=== PATIENT | female | born 1975 | race African-American/Black ===

== ENCOUNTER 2017-06-26 07:56 | Emergency (ER) | payer MEDICAID ==
[2017-06-26 09:09] LABS: ABSOLUTE EOSINOPHILS # (AUTO) 0.1 10^3/uL (0.0-0.6); ABSOLUTE LYMPHOCYTES (AUTO) 2.5 10^3/uL (0.5-4.7); ABSOLUTE MONOCYTES (AUTO) 0.4 10^3/uL (0.1-1.4); ABSOLUTE NEUT (AUTO) 1.7 10^3/uL (1.7-8.2); BASOPHILS % (AUTO) 0.6 % (0-2); HEMOGLOBIN 12.5 g/dL (12.0-15.5); LYMPHOCYTES % (AUTO) 53.3 % (13-45); MEAN CORPUSCULAR HEMOGLOBIN 27.1 pg (27.0-33.4); MEAN CORPUSCULAR VOLUME 85 fl (80-97); MONOCYTES % (AUTO) 7.7 % (3-13); RED BLOOD COUNT 4.62 10^6/uL (3.72-5.28); RED CELL DISTRIBUTION WIDTH 14.5 % (11.5-14.0); SEGMENTED NEUTROPHILS % (AUTO) 36.4 % (42-78); TOTAL CELLS COUNTED % (AUTO) 100 %; WHITE BLOOD COUNT 4.7 10^3/uL (4.0-10.5)
--- NOTE | 2017-06-26 09:19 | RADIOLOGY REPORT (SQ) ---
Exam Description CHEST PA/LAT Completed Date/time 06/26/2017 9:14 AM Reason For Study pain between shoulders, sob Comparison Impression. Exam Parameters NUMBER OF VIEWS: Two views. TECHNIQUE: Digital Frontal and Lateral radiographic views of the chest acquired. Limitations: (None). Findings LUNGS AND PLEURA: No opacities, masses or pneumothorax No pleural effusion. MEDIASTINUM AND HILAR STRUCTURES: No masses or contour abnormalities. HEART AND VASCULAR STRUCTURES: Heart size is normal. No evidence for failure. (Normal appearing aorta for age.) . BONES: No acute findings. HARDWARE: None. Impression NO SIGNIFICANT RADIOGRAPHIC FINDING IN THE CHEST. Technical Documentation 2010 [employer]- All Rights Reserved
[2017-06-26] MEDS ORDERED: FENTANYL CITRATE INJ/PF 100 MCG/2 ML AMPUL IV ONE ×2 (09:29→10:23)
[2017-06-26 09:30] LABS: CREATINE KINASE MB 0.37 ng/mL (<4.55)
--- NOTE | 2017-06-26 09:30 | ER Document Report ---
ED General - General Chief Complaint: Shoulder Pain Stated Complaint: PAIN BETWEEN SHOULDERS Time Seen by Provider: 06/26/17 08:34 Mode of Arrival: Ambulatory Information source: Patient Notes: Patient is a 42-year-old female who presents to the ER today for abdominal pain that began in the lower midabdomen 4 days ago and is now in the right side, right mid back. Patient denies any fever that she knows of, nausea, but admits to some shortness of breath with the pain and chills. Patient denies any chest pain, dysuria, hematuria, abnormal vaginal discharge. Patient does not have her appendix. Patient has had gallbladder problems in the past, But still has her gallbladder. TRAVEL OUTSIDE OF THE [place] IN LAST 30 DAYS: No - Related Data Allergies/Adverse Reactions: Penicillins Allergy (Verified 06/26/17 07:57) Hives Past Medical History - General Information source: Patient - Social History Smoking Status: Current Some Day Smoker Frequency of alcohol use: Occasional Drug Abuse: None Family History: Reviewed & Not Pertinent Patient has suicidal ideation: No Patient has homicidal ideation: No Pulmonary Medical History: Reports: Hx Asthma Renal/ Medical History: Denies: Hx Peritoneal Dialysis Past Surgical History: Reports: Hx Appendectomy - Immunizations Hx Diphtheria, Pertussis, Tetanus Vaccination: Yes Review of Systems - Review of Systems Constitutional: See HPI EENT: No symptoms reported Cardiovascular: No symptoms reported Respiratory: No symptoms reported Gastrointestinal: See HPI Genitourinary: See HPI Female Genitourinary: No symptoms reported Musculoskeletal: No symptoms reported Skin: No symptoms reported Hematologic/Lymphatic: No symptoms reported Neurological/Psychological: No symptoms reported Physical Exam - Vital signs Vitals: Temp Pulse Resp BP Pulse Ox 98.8 F 71 16 110/66 100 06/26/17 08:10 06/26/17 08:10 06/26/17 08:10 06/26/17 08:10 06/26/17 08:10 - Notes Notes: PHYSICAL EXAMINATION: GENERAL: Uncomfortable appearing, but in no acute distress. HEAD: Atraumatic, normocephalic. EYES: Pupils equal round and reactive to light, extraocular movements intact, sclera anicteric, conjunctiva are normal. NECK: Normal range of motion, supple without lymphadenopathy LUNGS: CTAB and equal. No wheezes rales or rhonchi. HEART: Regular rate and rhythm without murmurs ABDOMEN: Soft, right-sided, suprapubic tenderness. No guarding, no rebound BACK: no vertebral tenderness, normal ROM GI/: Right CVA tenderness EXTREMITIES: Normal range of motion, no pitting edema. No cyanosis. NEUROLOGICAL: Cranial nerves grossly intact. Normal sensory/motor exams. PSYCH: Normal mood, normal affect. SKIN: Warm, Dry, normal turgor, no rashes or lesions noted Course - Re-evaluation Re-evalutation: 06/26/17 10:26 +Urinalysis positive for infection with nitrites, leukocytes and 25 white blood cells. Right upper quadrant ultrasound negative for any acute pathology, chest x-ray negative for any acute pathology, lab work is otherwise unremarkable today. - Vital Signs Vital signs: Temp Pulse Resp BP Pulse Ox 98.8 F 71 12 106/85 100 06/26/17 08:10 06/26/17 08:10 06/26/17 09:29 06/26/17 09:29 06/26/17 09:29 - Laboratory Result Diagrams: 06/26/17 08:50 06/26/17 08:50 Laboratory results interpreted by me: 06/26/17 06/26/17 06/26/17 08:50 08:50 09:40 RDW 14.5 H Plt Count 98 L Seg Neutrophils % 36.4 L Lymphocytes % 53.3 H Chloride 108 H Glucose 63 L Urine Nitrite POSITIVE H Urine Urobilinogen 2.0 H Ur Leukocyte Esterase LARGE H Discharge - Discharge Clinical Impression: UTI (urinary tract infection) Qualifiers: Urinary tract infection type: site unspecified Hematuria presence: without hematuria Qualified Code(s): N39.0 - Urinary tract infection, site not specified Condition: Stable Disposition: HOME, SELF-CARE Instructions: Urinary Tract Infection ([facility]) Additional Instructions: Return immediately for any new or worsening symptoms. Follow up with primary care provider, call tomorrow to make followup appointment. Prescriptions: Ketorolac Tromethamine [Toradol 10 mg Tablet] 10 mg PO Q6HP PRN #20 tablet PRN Reason: Ciprofloxacin HCl [Cipro 500 mg Tablet] 500 mg PO BID #20 tablet Forms: Return to Work
[2017-06-26 09:31] LABS: TROPONIN I < 0.012 ng/mL
[2017-06-26 09:35] LABS: ALANINE AMINOTRANSFERASE 26 U/L (9-52); ALBUMIN 4.2 g/dL (3.5-5.0); ALKALINE PHOSPHATASE 45 U/L (38-126); ANION GAP 10 (5-19); ASPARTATE AMINO TRANSFERASE 22 U/L (14-36); BILIRUBIN,DIRECT 0.4 mg/dL (0.0-0.4); BILIRUBIN,TOTAL 0.6 mg/dL (0.2-1.3); BLOOD UREA NITROGEN 16 mg/dL (7-20); CALCIUM 9.5 mg/dL (8.4-10.2); CARBON DIOXIDE 25 mmol/L (22-30); CHLORIDE 108 mmol/L (98-107); CREATINE KINASE 109 U/L (30-135); GLUCOSE 63 mg/dL (75-110); POTASSIUM 4.1 mmol/L (3.6-5.0); SODIUM 142.5 mmol/L (137-145); TOTAL PROTEIN 6.9 g/dL (6.3-8.2)
[2017-06-26 09:46] LABS: PLATELET COUNT 98 10^3/uL (150-450)
[2017-06-26 10:04] LABS: APPEARANCE,URINE CLOUDY; BILIRUBIN,URINE NEGATIVE (NEGATIVE); COLOR,URINE YELLOW; GLUCOSE, URINE NEGATIVE (NEGATIVE); KETONES,URINE NEGATIVE (NEGATIVE); LEUKOCYTE ESTERASE,URINE LARGE (NEGATIVE); NITRITE,URINE POSITIVE (NEGATIVE); PROTEIN,URINE NEGATIVE (NEGATIVE); URINE SPECIFIC GRAVITY 1.027
--- NOTE | 2017-06-26 10:22 | RADIOLOGY REPORT (SQ) ---
EXAM DESCRIPTION: U/S ABDOMEN LIMITED W/O DOP COMPLETED DATE/TIME: 06/26/2017 10:07 am REASON FOR STUDY: ruq pain COMPARISON: None. TECHNIQUE: Dynamic and static grayscale images acquired of the abdomen and recorded on PACS. Additio nal selected color Doppler and spectral images recorded. LIMITATIONS: None. FINDINGS: PANCREAS: No masses. Visualized pancreatic duct normal caliber. LIVER: No masses. Echotexture normal. LIVER VASCULATURE: Normal directional flow of the main portal vein and hepatic veins. GALLBLADDER: No stones. Normal wall thickness. No pericholecystic fluid. ULTRASOUND-DETECTED WIGGINS'S SIGN: Negative. INTRAHEPATIC DUCTS AND COMMON DUCT: CBD and intrahepatic ducts normal caliber. No filling defects. INFERIOR VENA CAVA: Normal flow. AORTA: No aneurysm. RIGHT KIDNEY: Normal size. Normal echogenicity. No solid or suspicious masses. No hydronephrosis. No calcifications. PERITONEAL AND RIGHT PLEURAL SPACE: No ascites or effusions. OTHER: No other significant findings. IMPRESSION: NORMAL RIGHT UPPER QUADRANT ULTRASOUND. TECHNICAL DOCUMENTATION: JOB ID: [id number] [employer]- All Rights Reserved
[2017-06-26] MEDS ORDERED: CIPROFLOXACIN HCL 500 MG TABLET PO ONE (10:23)
[2017-06-26 12:00] VITALS: BP 116/66
--- NOTE | 2017-06-26 13:27 | EKG REPORT ---
SEVERITY:- NORMAL ECG - SINUS RHYTHM : Confirmed by: Guero Amin MD 26-Jun-2017 13:27:09
== END 2017-06-26 12:00 | disposition home or self-care (01) ==
LOC: ER 07:56
DX: N39.0 Urinary tract infection, site not specified (principal); M25.519 Pain in unspecified shoulder; M54.6 Pain in thoracic spine; R10.9 Unspecified abdominal pain; R10.30 Lower abdominal pain, unspecified; M54.9 Dorsalgia, unspecified; F17.200 Nicotine dependence, unspecified, uncomplicated
CPT/HCPCS: 93005; 96376; 99284; 96374; 36415; 82553; 82550; 85025; 81025; 80053; 81001; 84484; 71046; 76705; 93010; J3490; J3010

== ENCOUNTER 2018-08-05 02:42 | Emergency (ER) | payer SELFPAY ==
[2018-08-05] MEDS ORDERED: ACETAMINOPHEN 325 MG TABLET PO ONE (04:30)
[2018-08-05] MEDS ORDERED: CLINDAMYCIN HCL 150 MG CAPSULE PO ONE (04:30)
--- NOTE | 2018-08-05 04:46 | ER Document Report ---
ED General - General Chief Complaint: Breathing Difficulty Stated Complaint: DIFFICULTY BREATHING Time Seen by Provider: 08/05/18 04:23 Primary Care Provider: BRYANNA DUNBAR APRN [NO LOCAL MD] - Follow up in 3-5 days Notes: Patient is a 43-year-old female who presents with complaint of runny nose cough congestion sore throat. She also has pain over her frontal sinus and the right side says it goes down into her face. She says when she leans back she feels a severe pressure in her frontal sinus. When she leans forward he gets better. No nausea. No vomiting. Subjective fevers. Symptoms have been ongoing for several days. She does smoke. She does have an occasional cough. No wheezing that she is aware of. No chronic medical problems. She is otherwise healthy. TRAVEL OUTSIDE OF THE [place] IN LAST 30 DAYS: No - Related Data Allergies/Adverse Reactions: Penicillins Allergy (Verified 08/05/18 02:54) Hives Past Medical History - Social History Smoking Status: Current Every Day Smoker Frequency of alcohol use: None Drug Abuse: None Family History: Reviewed & Not Pertinent Pulmonary Medical History: Reports: Hx Asthma Renal/ Medical History: Denies: Hx Peritoneal Dialysis Past Surgical History: Reports: Hx Appendectomy - Immunizations Hx Diphtheria, Pertussis, Tetanus Vaccination: Yes Review of Systems - Review of Systems Notes: My Normal Review Basic REVIEW OF SYSTEMS: CONSTITUTIONAL : Subjective fevers EENT: Nasal congestion. Right-sided frontal headache with sinus pressure. Sore throat. RESPIRATORY: Cough. GASTROINTESTINAL: Denies abdominal pain. Denies nausea, vomiting, or diarrhea. MUSCULOSKELETAL: Denies neck or back pain or joint pain or swelling. SKIN: Denies rash or skin lesions. NEUROLOGICAL: Denies altered mental status or loss of consciousness. Has a headache. Denies weakness or paralysis or loss of use of either side. Denies problems with gait or speech. Denies sensory or motor loss. ALL OTHER SYSTEMS REVIEWED AND NEGATIVE. Physical Exam - Vital signs Vitals: Temp Pulse Resp BP Pulse Ox 99.2 F 92 16 137/81 H 100 08/05/18 02:43 08/05/18 02:43 08/05/18 02:43 08/05/18 02:43 08/05/18 02:43 - Notes Notes: General Appearance: Well nourished, alert, cooperative, no acute distress, mild obvious discomfort. Audible nasal congestion on exam Vitals: reviewed, See vital signs table. Head: no swelling or tenderness to the head Eyes: PERRL, EOMI, Conjuctiva clear Mouth: No decreasd moisture Throat: No tonsillar inflammation, No airway obstruction, No lymphadenopathy Ears: Normal-appearing tympanic membranes bilaterally Neck: Supple, no neck tenderness, No thyromegaly. Patient moves her neck freely during exam without signs of stiffness. Lungs: No wheezing, No rales, No rhonci, No accessory muscle use, good air exchange bilaterally. Heart: Normal rate, Regular rythm, No murmur, no rub Extremities: good pulses in all extremities, no swelling or tenderness in the extremities, no edema. Skin: warm, dry, appropriate color, no rash Neuro: speech clear, oriented x 3, normal affect, responds appropriately to questions. Renal nerves II through XII are intact. Distal sensation intact. Patient moves all extremities without difficulty. Course - Re-evaluation Re-evalutation: 08/05/18 05:23 Based on patient's exam and history suspect this most likely has a sinusitis being that she has a pressure over her right frontal maxillary sinus that is wor se with certain positions of her head. She has also audible nasal congestion with other URI symptoms such as sore throat and ear pain. We will place her on antibiotic. She started having some fevers today. I do not suspect meningitis as the patient is well-appearing and not at all confused and altered despite symptoms going on for several days. Also she is moving her head freely when the room with no signs of neck stiffness. Encouraged patient to return to ER if she has severe worsening headache, fevers respond to Tylenol, vomiting, or if she feels that she is worsening in any way. Patient agrees with plan will be discharged home. Dictation of this chart was performed using voice recognition software; therefore, there may be some unintended grammatical errors. - Vital Signs Vital signs: Temp Pulse Resp BP Pulse Ox 99.2 F 92 16 137/81 H 100 08/05/18 02:43 08/05/18 02:43 08/05/18 02:43 08/05/18 02:43 08/05/18 02:43 Discharge - Discharge Clinical Impression: Sinusitis, URI (upper respiratory infection) Condition: Good Disposition: HOME, SELF-CARE Additional Instructions: Please take Ibuprofen 400mg every 6 hours and Tylenol 500mg every 4 hours for fever or pain. Please take the antibiotic (clindamycin) as prescribed. Please follow up with your doctor in 3-5 days for reevaluation. Return to the ER for reevaluation if you do not have a doctor and your symptoms have not started to improve after 3 days please return to the ER immediately if you develop worsening pain, recurrent fevers not responding to Tylenol. neck stiffness, or if you feel that you are worsening in any way. Please stop smoking. Prescriptions: RX: Clindamycin HCl [Cleocin 150 mg Capsule] 300 mg PO Q6 #56 capsule Forms: Return to Work Referrals: BRYANNA DUNBAR, CLAIRE [NO LOCAL MD] - Follow up in 3-5 days
[2018-08-05 05:23] VITALS: BP 124/74
== END 2018-08-05 05:25 | disposition home or self-care (01) ==
LOC: ER 02:42
DX: J32.9 Chronic sinusitis, unspecified (principal); J06.9 Acute upper respiratory infection, unspecified; R05 Cough; R09.81 Nasal congestion; R51 Headache; H92.09 Otalgia, unspecified ear; J02.9 Acute pharyngitis, unspecified; J45.909 Unspecified asthma, uncomplicated; F17.200 Nicotine dependence, unspecified, uncomplicated; Z88.0 Allergy status to penicillin
CPT/HCPCS: 99283

== ENCOUNTER 2018-09-27 07:05 | Emergency (ER) | payer SELFPAY ==
[2018-09-27 08:23] LABS: ABSOLUTE EOSINOPHILS # (AUTO) 0.1 10^3/uL (0.0-0.6); ABSOLUTE LYMPHOCYTES (AUTO) 0.9 10^3/uL (0.5-4.7); ABSOLUTE MONOCYTES (AUTO) 0.5 10^3/uL (0.1-1.4); ABSOLUTE NEUT (AUTO) 6.3 10^3/uL (1.7-8.2); BASOPHILS % (AUTO) 0.2 % (0-2); EOSINOPHILS % (AUTO) 1.2 % (0-6); HEMATOCRIT 40.2 % (36.0-47.0); MEAN CORPUSCULAR HEMOGLOBIN 27.3 pg (27.0-33.4); MEAN CORPUSCULAR HGB CONC 32.4 g/dL (32.0-36.0); MEAN CORPUSCULAR VOLUME 84 fl (80-97); MONOCYTES % (AUTO) 6.3 % (3-13); RED BLOOD COUNT 4.77 10^6/uL (3.72-5.28); RED CELL DISTRIBUTION WIDTH 14.7 % (11.5-14.0); SEGMENTED NEUTROPHILS % (AUTO) 80.3 % (42-78); TOTAL CELLS COUNTED % (AUTO) 100 %; WHITE BLOOD COUNT 7.9 10^3/uL (4.0-10.5)
[2018-09-27 08:34] LABS: ALANINE AMINOTRANSFERASE 20 U/L (9-52); ALBUMIN 4.5 g/dL (3.5-5.0); ALKALINE PHOSPHATASE 51 U/L (38-126); ANION GAP 10 (5-19); ASPARTATE AMINO TRANSFERASE 23 U/L (14-36); BILIRUBIN,DIRECT 0.3 mg/dL (0.0-0.4); BLOOD UREA NITROGEN 10 mg/dL (7-20); CALCIUM 9.7 mg/dL (8.4-10.2); CARBON DIOXIDE 26 mmol/L (22-30); CHLORIDE 107 mmol/L (98-107); GLUCOSE 94 mg/dL (75-110); LIPASE 87.3 U/L (23-300); POTASSIUM 3.7 mmol/L (3.6-5.0); SODIUM 143.3 mmol/L (137-145); TOTAL PROTEIN 7.4 g/dL (6.3-8.2)
[2018-09-27 08:35] LABS: APPEARANCE,URINE CLOUDY; BILIRUBIN,URINE NEGATIVE (NEGATIVE); COLOR,URINE AMBER; GLUCOSE, URINE NEGATIVE (NEGATIVE); KETONES,URINE 20 mg/dL (NEGATIVE); LEUKOCYTE ESTERASE,URINE SMALL (NEGATIVE); NITRITE,URINE NEGATIVE (NEGATIVE); PROTEIN,URINE 100 mg/dL (NEGATIVE); URINE SPECIFIC GRAVITY 1.023; UROBILINOGEN,URINE NEGATIVE mg/dL (<2.0)
[2018-09-27 08:45] LABS: PLATELET COUNT 96 10^3/uL (150-450)
--- NOTE | 2018-09-27 08:50 | ER Document Report ---
ED General - General Chief Complaint: Abdominal Pain Stated Complaint: ABDOMINAL PAIN Time Seen by Provider: 09/27/18 07:54 Mode of Arrival: Ambulatory Information source: Patient Notes: Patient presents to the emergency department with complaints of abdominal pain for the past 3 days. She reports sharp pains that come and go. She reports when the pain comes it lasts for approximately 5 to 7 minutes. She feels very sweaty with that little bit of nausea. Denies diarrhea reports last bowel movement yesterday was normal. Denies fever, vomiting. Reports she is tried to eat but is not been able to because of the pain. Reports she is drinking without problems drink water this morning. Denies trauma. Reports she has had this pain in her stomach for a year but for the past 3 days it is coming and going. Denies pain with void denies vaginal discharge. TRAVEL OUTSIDE OF THE [place] IN LAST 30 DAYS: No - HPI Onset: Other Onset/Duration: Persistent, Waxing and waning Quality of pain: Sharp Severity: Severe Pain Level: 5 - Patient declines pain meds Associated symptoms: Nausea Exacerbated by: Denies Relieved by: Denies Similar symptoms previously: Yes Recently seen / treated by doctor: No - Related Data Allergies/Adverse Reactions: Penicillins Allergy (Verified 09/27/18 08:11) Hives Past Medical History - General Information source: Patient Last Menstrual Period: current-Dabo - Social History Smoking Status: Former Smoker Cigarette use (# per day): No Frequency of alcohol use: None Drug Abuse: None Family History: Reviewed & Not Pertinent Patient has suicidal ideation: No Patient has homicidal ideation: No Pulmonary Medical History: Reports: Hx Asthma Renal/ Medical History: Denies: Hx Peritoneal Dialysis Past Surgical History: Reports: Hx Appendectomy - Immunizations Hx Diphtheria, Pertussis, Tetanus Vaccination: Yes Review of Systems - Review of Systems Notes: Review HPI for review of systems., All other systems negative Physical Exam - Vital signs Vitals: Temp Pulse Resp BP Pulse Ox 98.7 F 95 16 129/90 H 97 09/27/18 07:24 09/27/18 07:24 09/27/18 07:24 09/27/18 07:24 09/27/18 07:24 - Notes Notes: PHYSICAL EXAMINATION: GENERAL: Well-appearing and in no acute distress HEAD: Atraumatic, normocephalic. EYES: Pupils equal round , extraocular movements intact, sclera anicteric, conjunctiva are normal. ENT: nares patent, Moist mucous membranes. NECK: Normal range of motion, supple without lymphadenopathy LUNGS: CTAB and equal. No wheezes rales or rhonchi. HEART: Regular rate and rhythm without murmurs ABDOMEN: Soft, left side/ LLQ tenderness. No guarding, no rebound EXTREMITIES: Normal range of motion, no pitting edema. NEUROLOGICAL: Cranial nerves grossly intact. PSYCH: Normal mood, normal affect. SKIN: Warm, Dry, normal turgor, no rashes or lesions noted Course - Re-evaluation Re-evalutation: 09/27/18 08:50 Labs unremarkable. Patient complains of severe pain. Will review with CT of the abdomen, possibly diverticulosis 09/27/18 colonic wall thickening, attempted to obtain patient in appointment with Dr. martin without success. Patient will follow up with Dr. Martin on outpatient basis. She was instructed on all results CT results labs. No complaints of pain at this time Dictation of this chart was performed using voice recognition software; therefore, there may be some unintended grammatical errors. - Vital Signs Vital signs: Temp Pulse Resp BP Pulse Ox 98.0 F 95 18 123/74 100 09/27/18 13:34 09/27/18 13:34 09/27/18 13:34 09/27/18 13:34 09/27/18 13:34 - Laboratory Result Diagrams: 09/27/18 08:09 09/27/18 08:09 Laboratory results interpreted by me: 09/27/18 09/27/18 08:09 08:09 RDW 14.7 H Plt Count 96 L Seg Neutrophils % 80.3 H Lymphocytes % 12.0 L Urine Protein 100 H Urine Ketones 20 H Urine Blood LARGE H Ur Leukocyte Esterase SMALL H - Diagnostic Test Radiology reviewed: Image reviewed, Reports reviewed - Clonic wall thickening noted Discharge - Discharge Clinical Impression: Abdominal pain Qualifiers: Abdominal location: left lower quadrant Qualified Code(s): R10.32 - Left lower quadrant pain Condition: Stable Disposition: HOME, SELF-CARE Instructions: Abdominal Pain ([facility]) Additional Instructions: *You have been evaluated for abdominal pain *Follow up with Dr Martin [phone], call to confirm appointment - Take a copy of your CT report to Dr. Eweje *Return to ED for worsening condition, changes, needs *Return to ED if not better in 24 hours Monitor your blood pressure. Your blood pressure was elevated today. This may be because you were anxious, in pain or because you need medication. It is important to follow up with your primary care provider for full evaluation. Forms: Elevated Blood Pressure, Return to Work
--- NOTE | 2018-09-27 11:58 | RADIOLOGY REPORT (SQ) ---
EXAM DESCRIPTION: CT ABD/PELVIS WITH IV ORAL COMPLETED DATE/TIME: 09/27/2018 11:47 am REASON FOR STUDY: LLQ left side abd pain COMPARISON: None. TECHNIQUE: CT scan of the abdomen and pelvis performed with intravenous and oral contrast using orjas danyel scanning technique with dynamic intravenous contrast injection. Images reviewed with lung, soft t issue, and bone windows. Reconstructed coronal and sagittal MPR images reviewed. Delayed images for e valuation of the urinary system also acquired. All images stored on PACS. All CT scanners at this facility use dose modulation, iterative reconstruction, and/or weight based d osing when appropriate to reduce radiation dose to as low as reasonably achievable (ALARA). [facility]: Dose Right [facility]: CareDose [facility]: Dose Right [facility]: Teradose 4D [facility]: [employer] CONTRAST TYPE AND DOSE: contrast/concentration: Isovue 350.00 mg/ml; Total Contrast Delivered: 79.0 ml; Total Saline Delivered: 68.0 ml RENAL FUNCTION: GFR > 60. RADIATION DOSE: CT Rad equipment meets quality standard of care and radiation dose reduction techniq ues were employed. CTDIvol: 6.0 - 8.0 mGy. DLP: 752 mGy-cm. . LIMITATIONS: Motion. FINDINGS: LOWER CHEST: No significant findings. No nodules or infiltrates. LIVER: Normal size. No masses. No dilated ducts. SPLEEN: Normal size. No focal lesions. PANCREAS: No masses. No significant calcifications. No adjacent inflammation or peripancreatic fluid collections. Pancreatic duct not dilated. GALLBLADDER: No identified stones by CT criteria. No inflammatory changes to suggest cholecystitis. ADRENAL GLANDS: No significant masses or asymmetry. RIGHT KIDNEY AND URETER: No solid masses. No significant calcifications. No hydronephrosis or hyd roureter. LEFT KIDNEY AND URETER: No solid masses. No significant calcifications. No hydronephrosis or hydr oureter. AORTA AND VESSELS: No aneurysm. No dissection. Renal arteries, SMA, celiac without stenosis. RETROPERITONEUM: No retroperitoneal adenopathy, hemorrhage or masses. BOWEL AND PERITONEAL CAVITY: Bowel wall thickening ascending colon to the hepatic flexure. No obstru ction. No ascites or free air. No adenopathy. APPENDIX: Surgically absent. PELVIS: No significant masses. Normal bladder. No free fluid. ABDOMINAL WALL: No masses. No hernias. BONES: No significant or acute findings. OTHER: No other significant finding. IMPRESSION: Colonic wall thickening most likely inflammatory or infectious etiology. TECHNICAL DOCUMENTATION: JOB ID: [id number] Quality ID # [id number]: Final reports with documentation of one or more dose reduction techniques (e.g., Au tomated exposure control, adjustment of the mA and/or kV according to patient size, use of iterative reconstruction technique) 2010 [employer]- All Rights Reserved Reading location - IP/workstation name: [email or web address]
[2018-09-27 13:35] VITALS: BP 123/74
== END 2018-09-27 13:35 | disposition home or self-care (01) ==
LOC: ER 07:05
DX: R10.32 Left lower quadrant pain (principal); R10.9 Unspecified abdominal pain; R61 Generalized hyperhidrosis; R11.0 Nausea; Z87.891 Personal history of nicotine dependence; J45.909 Unspecified asthma, uncomplicated
CPT/HCPCS: 36415; 74177; 80053; 81001; 81025; 83690; 85025; 99284

== ENCOUNTER 2019-02-05 10:04 | Emergency (ER) | payer BC ==
[2019-02-05] MEDS ORDERED: IBUPROFEN 800 MG TABLET PO ONE (10:19)
[2019-02-05] MEDS ORDERED: PSEUDOEPHEDRINE HCL 30 MG TABLET PO ONE (10:19)
--- NOTE | 2019-02-05 10:25 | ER Document Report ---
HPI - HPI Patient complains to provider of: sore throat sinus pressure Time Seen by Provider: 02/05/19 10:14 Onset: Other - monday Quality of pain: Achy, Pressure Context: 43-year-old female presents emergency department with complaints of sinus pressure sore throat since Monday. Reports she had a fever on Monday of 103 but has not had a fever since that time. Denies vomiting diarrhea. Reports unknown exposures to this strep throat. Reports her face is hurting. She is been taking Mucinex without relief of symptoms. Associated Symptoms: Fever Exacerbated by: Denies Relieved by: Denies Similar symptoms previously: No Recently seen / treated by doctor: No - REPRODUCTIVE Reproductive: DENIES: : Past Medical History - General Information source: Patient Last Menstrual Period: depo - Social History Smoking Status: Unknown if Ever Smoked Cigarette use (# per day): No Frequency of alcohol use: None Drug Abuse: None Occupation: [employer] Family History: Reviewed & Not Pertinent Patient has suicidal ideation: No Patient has homicidal ideation: No Pulmonary Medical History: Reports: Hx Asthma Renal/ Medical History: Denies: Hx Peritoneal Dialysis Past Surgical History: Reports: Hx Appendectomy - Immunizations Hx Diphtheria, Pertussis, Tetanus Vaccination: Yes Vertical Provider Document - CONSTITUTIONAL Agree With Documented VS: Yes Exam Limitations: No Limitations General Appearance: WD/WN, No Apparent Distress - INFECTION CONTROL TRAVEL OUTSIDE OF THE [place] IN LAST 30 DAYS: No - HEENT HEENT: Atraumatic, Normal ENT Exam, Normocephalic, PERRLA, Pharyngeal Erythema - Good airway no trismus no ludwigs speaks in a clear voice. negative: Conjuctival Injection, Pharyngeal Exudate, Pharyngeal Tenderness, Tympanic Membrane Red Notes: Complains of frontal maxillary sinus pressure - NECK Neck: Normal Inspection, Supple. negative: Lymphadenopathy-Left, Lymphadenopathy-Right - RESPIRATORY Respiratory: Breath Sounds Normal, No Respiratory Distress - CARDIOVASCULAR Cardiovascular: Regular Rate, Regular Rhythm - MUSCULOSKELETAL/EXTREMETIES Musculoskeletal/Extremeties: YONATHAN DUBOSE - NEURO Level of Consciousness: Awake, Alert, Appropriate Motor/Sensory: No Motor Deficit - DERM Integumentary: Warm, Dry, No Rash Course - Re-evaluation Re-evalutation: 02/05/19 10:24 43-year-old female with history of sinus pressure since Monday and a sore throat. Fever on Luke none since. No vomiting diarrhea no known exposure to strep. Patient speaking in a clear voice no obvious distress no trismus Discharge - Discharge Clinical Impression: Sinus pressure, Sore throat Condition: Stable Disposition: HOME, SELF-CARE Instructions: Decongestant Medication ([facility]), Use of [id number] Ibuprofen ([facility]), Sore Throat ([facility]) Additional Instructions: *You have been evaluated for a sore throat, sinus pressure Your strep test was negative today but a throat culture is pending. Should you need antibiotics you will be contacted in the next 2 to 3 days. *In the meantime gargle with warm salt water and take throat lozenges for comfort *Monitor your temperature take ibuprofen as indicated *Take an [id number]-clx-wjdimiw decongestant such as Mucinex D or Zyrtec-D Do not let anyone drink/eat after you *Good hand washing *Follow-up with a primary care provider within 1 week for recheck. *Return to ED for worsening condition change, needs Forms: Return to Work Referrals: LILIA MARINELLI MD [Primary Care Provider] - Follow up as needed
[2019-02-05 10:57] VITALS: BP 117/73
== END 2019-02-05 11:11 | disposition home or self-care (01) ==
LOC: ER 10:04
DX: J02.9 Acute pharyngitis, unspecified (principal); R09.89 Other specified symptoms and signs involving the circulatory and respiratory systems; J45.909 Unspecified asthma, uncomplicated; Z79.3 Long term (current) use of hormonal contraceptives
CPT/HCPCS: 87070; 87880

== ENCOUNTER 2019-06-15 17:31 | Emergency (ER) | payer BC ==
[2019-06-15] MEDS ORDERED: ONDANSETRON 4 MG TAB.RAPDIS PO ONE (18:27)
[2019-06-15] MEDS ORDERED: IBUPROFEN 800 MG TABLET PO ONE (18:27)
--- NOTE | 2019-06-15 18:29 | ER Document Report ---
HPI - HPI Patient complains to provider of: Body aches Time Seen by Provider: 06/15/19 18:23 Onset: This morning Onset/Duration: Gradual Quality of pain: Achy Pain Level: 5 Context: Patient presents complaining of generalized body aches that started today. Patient reports sore throat and nausea. Patient denies any cough congestion vomiting or diarrhea. Patient reports influenza exposure 2 weeks ago and is concerned about this today. Associated Symptoms: Body/muscle aches, Nausea, Sore throat. denies: Chest pain, Nonproductive cough, Productive cough, Earache, Fever, Headache, Vomiting Exacerbated by: Denies Relieved by: Denies Similar symptoms previously: No Recently seen / treated by doctor: No - ROS ROS below otherwise negative: Yes Systems Reviewed and Negative: Yes All other systems reviewed and negative - CONSTITUTIONAL Constitutional: DENIES: Fever - EENT EENT: REPORTS: Sore Throat - RESPIRATORY Respiratory: DENIES: Trouble Breathing, Coughing - GASTROINTESTINAL Gastrointestinal: REPORTS: Nausea. DENIES: Patient vomiting - URINARY Urinary: DENIES: Dysuria - REPRODUCTIVE Reproductive: DENIES: : - DERM Skin Color: Normal Skin Problems: None Past Medical History - General Information source: Patient - Social History Smoking Status: Never Smoker Frequency of alcohol use: Rare Drug Abuse: None Occupation: [employer] Family History: Reviewed & Not Pertinent Patient has suicidal ideation: No Patient has homicidal ideation: No - Medical History Medical History: Negative Pulmonary Medical History: Reports: Hx Asthma Renal/ Medical History: Denies: Hx Peritoneal Dialysis Past Surgical History: Reports: Hx Appendectomy - Immunizations Hx Diphtheria, Pertussis, Tetanus Vaccination: Yes Vertical Provider Document - CONSTITUTIONAL Agree With Documented VS: Yes Exam Limitations: No Limitations General Appearance: WD/WN, No Apparent Distress - INFECTION CONTROL TRAVEL OUTSIDE OF THE [place] IN LAST 30 DAYS: No - HEENT HEENT: Atraumatic, Normocephalic, Pharyngeal Tenderness, Pharyngeal Erythema. negative: Pharyngeal Exudate - NECK Neck: Normal Inspection, Supple. negative: Lymphadenopathy-Left, Lymphaden opathy-Right - RESPIRATORY Respiratory: Breath Sounds Normal, No Respiratory Distress, Chest Non-Tender - CARDIOVASCULAR Cardiovascular: Regular Rate, Regular Rhythm, No Murmur - GI/ABDOMEN Gastrointestinal: Abdomen Soft - BACK Back: Normal Inspection - MUSCULOSKELETAL/EXTREMETIES Musculoskeletal/Extremeties: MAEW, FROM, No Edema - NEURO Level of Consciousness: Awake, Alert, Appropriate Motor/Sensory: No Motor Deficit - DERM Integumentary: Warm, Dry, No Rash Course - Re-evaluation Re-evalutation: 06/15/19 19:55 RN attempted to call patient back into room, patient unable to be located. 06/15/19 20:02 Patient with negative strep test. Patient with mild elevation in CPK. Patient encouraged to increase oral fluids and stay well-hydrated. Patient is concerned about influenza exposure and would like treatment at this time. Patient does present with symptoms worrisome for early influenza. Good return precautions discussed with patient. - Vital Signs Vital signs: Temp Pulse Resp BP Pulse Ox 98.6 F 91 20 110/79 98 06/15/19 18:03 06/15/19 18:03 06/15/19 18:03 06/15/19 18:03 06/15/19 18:03 - Laboratory Result Diagrams: 06/15/19 18:30 06/15/19 18:30 Laboratory results interpreted by me: 06/15/19 20:02 Labs- Entire Visit 06/15/19 06/15/19 06/15/19 18:30 18:30 18:30 WBC 6.1 RBC 4.75 Hgb 13.2 Hct 40.5 MCV 85 MCH 27.7 MCHC 32.5 RDW 15.2 H Plt Count 106 L Lymph % (Auto) 38.2 [place] % (Auto) 9.1 Eos % (Auto) 1.2 Baso % (Auto) 0.5 Absolute Neuts (auto) 3.1 Absolute Lymphs (auto) 2.3 Absolute Monos (auto) 0.6 Absolute Eos (auto) 0.1 Absolute Basos (auto) 0.0 Seg Neutrophils % 51.0 Sodium 139.2 Potassium 3.9 Chloride 109 H Carbon Dioxide 21 L Anion Gap 9 BUN 8 Creatinine 0.75 Est GFR ( Amer) > 60 Est GFR (MDRD) Non-Af > 60 Glucose 90 Calcium 9.6 Creatine Kinase 224 H Group A Strep Rapid NEGATIVE Discharge - Discharge Clinical Impression: Myalgia, Exposure to influenza, Sore throat Condition: Stable Disposition: HOME, SELF-CARE Instructions: Sore Throat ([facility]), Influenza ([facility]), Myalagia (Muscle Pain) ([facility]) Additional Instructions: Return immediately for any new or worsening symptoms Followup with your primary care provider, call tomorrow to make a followup appointment Prescriptions: Naproxen [Naprosyn 250 Nmg Tablet] 1 tab PO BID #14 tablet Oseltamivir Phosphate [Tamiflu 75 mg Capsule] 75 mg PO BID #10 capsule Forms: Return to Work Referrals: LILIA MARINELLI MD [Primary Care Provider] - Follow up as needed
[2019-06-15 18:57] LABS: ABSOLUTE EOSINOPHILS # (AUTO) 0.1 10^3/uL (0.0-0.6); ABSOLUTE LYMPHOCYTES (AUTO) 2.3 10^3/uL (0.5-4.7); ABSOLUTE MONOCYTES (AUTO) 0.6 10^3/uL (0.1-1.4); ABSOLUTE NEUT (AUTO) 3.1 10^3/uL (1.7-8.2); BASOPHILS % (AUTO) 0.5 % (0-2); EOSINOPHILS % (AUTO) 1.2 % (0-6); HEMATOCRIT 40.5 % (36.0-47.0); HEMOGLOBIN 13.2 g/dL (12.0-15.5); LYMPHOCYTES % (AUTO) 38.2 % (13-45); MEAN CORPUSCULAR HEMOGLOBIN 27.7 pg (27.0-33.4); MEAN CORPUSCULAR HGB CONC 32.5 g/dL (32.0-36.0); MEAN CORPUSCULAR VOLUME 85 fl (80-97); MONOCYTES % (AUTO) 9.1 % (3-13); PLATELET COUNT 106 10^3/uL (150-450); RED BLOOD COUNT 4.75 10^6/uL (3.72-5.28); RED CELL DISTRIBUTION WIDTH 15.2 % (11.5-14.0); TOTAL CELLS COUNTED % (AUTO) 100 %; WHITE BLOOD COUNT 6.1 10^3/uL (4.0-10.5)
[2019-06-15 19:01] LABS: ANION GAP 9 (5-19); BLOOD UREA NITROGEN 8 mg/dL (7-20); CALCIUM 9.6 mg/dL (8.4-10.2); CARBON DIOXIDE 21 mmol/L (22-30); CHLORIDE 109 mmol/L (98-107); CREATINE KINASE 224 U/L (30-135); GLUCOSE 90 mg/dL (75-110); POTASSIUM 3.9 mmol/L (3.6-5.0)
[2019-06-15 20:02] VITALS: BP 116/70
== END 2019-06-15 20:07 | disposition home or self-care (01) ==
LOC: ER 17:31
DX: M79.10 Myalgia, unspecified site (principal); J02.9 Acute pharyngitis, unspecified; Z20.828 Contact with and (suspected) exposure to other viral communicable diseases; R11.0 Nausea; J45.909 Unspecified asthma, uncomplicated
CPT/HCPCS: 36415; 87070; 87880; 82550; 85025; 80048; S0119; 99283